=== PATIENT | female | born 2000 | race Caucasian/White ===

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

== ENCOUNTER 2019-01-31 09:55 | Emergency (ER) | payer BC, OTHER ==
[2019-01-31 10:30] VITALS: BP 104/68
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
[2019-01-31] MEDS ORDERED: Ketorolac INJ* 60 MG/2 ML VIAL IM ONE (11:03)
== END 2019-01-31 12:24 | disposition home or self-care (01) ==
LOC: UCEAST 09:55
DX: S16.1XXA Strain of muscle, fascia and tendon at neck level, initial encounter (principal); M79.641 Pain in right hand; V43.52XA Car driver injured in collision with other type car in traffic accident, initial encounter; Y92.410 Unspecified street and highway as the place of occurrence of the external cause; Z88.0 Allergy status to penicillin
CPT/HCPCS: 72050; 96372; 99211; G0463; J1885